=== PATIENT | male | born 1985 | race Caucasian/White ===

== ENCOUNTER 2016-09-01 16:08 | Emergency (ER) | payer OTHER ==
[~2016-09-01] VITALS: Ht 175.3 cm; Wt 73.9 kg
[2016-09-01] MEDS ORDERED: METHADONE H5 MG/5 M2 PO (17:10)
--- NOTE | 2016-09-01 18:25 | ED UPPER/LOWER EXTREMITY COMPL ---
History of Present Illness General Chief Complaint: General Adult Stated Complaint: PT HAS POSSIBLE INFECTION IN THE LEFT ARM Source: patient Exam Limitations: no limitations Vital Signs & Intake/Output Vital Signs & Intake/Output Vital Signs Date Time Temp Pulse Resp B/P B/P Pulse O2 O2 Flow FiO2 Mean Ox Delivery Rate 09/01 1946 98.7 76 18 117/65 97 Room Air 09/01 1807 98.5 78 18 117/71 98 Room Air 09/01 1612 97.5 78 16 115/60 97 Room Air Allergies Coded Allergies: Penicillins (PER PT CHILDHOOD REACTION 09/01/16) amoxicillin (PER PT CHILDHOOD REACTION 09/01/16) Reconcile Medications Doxycycline Hyclate 100 MG TABLET 1 TAB PO BID cellulitis Methadone HCl 5 MG/5 ML SOLUTION 55 MG PO DAILY MENTAL HEALTH (Reported) Triage Note: PT STATES HE HAD AN INFECTION MIDDLE FINGER LEFT HAND AND NOW HE HAS STREAKS OF RED GOING UP HIS ARM. Triage Nurses Notes Reviewed? yes Onset: Abrupt Duration: day(s):, constant, getting worse Timing: recent history Severity: moderate, severe Pain/Injury Location: Left: Arm, Forearm, Wrist, Hand. Method of Injury: unknown No Modifying Factors: none HPI: 31-year-old male with a history of IV drug use but has not used in a long time comes into emergency room with complaints of left middle finger swelling and pain at the tip and now redness going up his left arm. He denies any fever chills. He denies any current IV drug use. Painful. Nothing seems to make the symptoms better. Denies any other associated symptoms. (HARRIET LOPEZ) Past History Travel History Traveled to [place] past 21 day No Medical History Any Pertinent Medical History? none Surgical History Surgical History: N Psychosocial History What is your primary language Syriac Tobacco Use: Current Daily Use Daily Tobacco Use Amount/Type: => 5 Cigarettes daily ETOH Use: denies use Illicit Drug Use: METHADONE Family History Hx Contributory? No (HARRIET LOPEZ) Review of Systems Review of Systems Constitutional: Reports: no symptoms. EENTM: Reports: no symptoms. Respiratory: Reports: no symptoms. Cardiovascular: Reports: no symptoms. Gastrointestinal/Abdominal: Reports: no symptoms. Genitourinary: Reports: no symptoms. Musculoskeletal: Reports: see HPI. Skin: Reports: see HPI. Neurological/Psychological: Reports: no symptoms. Hematologic/Endocrine: Reports: no symptoms. Immunological: Reports: no symptoms. All Other Systems: Reviewed and Negative (HARRIET LOPEZ) Physical Exam Physical Exam General Appearance: well developed/nourished, mild distress Head: atraumatic Eyes: Bilateral: normal appearance. Ears, Nose, Throat: normal ENT inspection, hearing grossly normal Neck: normal inspection Cardiovascular/Respiratory: no respiratory distress Back: normal inspection Elbow Left: erythema and lymph streaking up left arm, multiple patchy red areas, warm to touch, Hand Left: some mild swelling to the left third phalanx, some mild erythema, no abscess appreciated, Neurologic/Tendon: normal sensation, normal motor functions, normal tendon functions, responds to pain, no evidence tendon injury, no pulse deficit Skin: intact, normal color, warm/dry Lymphatic: no anterior cervical lucy (HARRIET LOPEZ) Progress Differential Diagnosis: arterial insufficiency, cellulitis, CHF, compartment syndrome, contusion, dislocation, DVT, fracture, gout, septic arthritis, sprain, tendon injury, abscess, superficial thrombophlebitis, paronychia, Plan of Care: Orders Procedure Date/time Status BLOOD CULTURE 09/02 1735 Active C-REACTIVE PROTEIN 09/02 1735 Complete COMPREHENSIVE METABOLIC PANEL 09/02 1735 Complete CBC WITHOUT DIFFERENTIAL 09/02 1735 Complete Laboratory Tests 09/01/16 180: Anion Gap 13, Estimated GFR > 60, BUN/Creatinine Ratio 16.7, Glucose 102 H, Calcium 9.7, Total Bilirubin 0.8, AST 52, ALT 106 H, Alkaline Phosphatase 63, C -Reactive Prot, Quant 1.5 H, Total Protein 7.5, Albumin 4.5, Globulin 3.0, Albumin/Globulin Ratio 1.5, CBC w Diff NO MAN DIFF REQ, RBC 4.70, MCV 88.7, MCH 29.8, RDW 12.9, MPV 10.0, Gran % 67.4, Lymphocytes % 23.9, Monocytes % 7.4, Eosinophils % 0.9, Basophils % 0.4, Absolute Granulocytes 6.2, Absolute Lymphocytes 2.2, Absolute Monocytes 0.7 H, Absolute Eosinophils 0.1, Absolute Basophils 0, PUBS MCHC 33.6 Microbiology 09/01 1824 BLOOD: Blood Culture - RECD 09/01 1804 BLOOD: Blood Culture - RECD Departure Departure Disposition: HOME OR SELF CARE Condition: Stable Clinical Impression Primary Impression: Cellulitis of left arm Referrals: PATIENT HAS NO PRIMARY CARE DR (PCP/Family) Additional Instructions: Take doxycycline as prescribed. Return in 2 days for a wound check. Return sooner if any other concerns worsening symptoms. Please go over all results of today's visit with your primary care doctor. Contact your primary care doctor to let them know you were here in the emergency room. There may be nonspecific findings which may not be related to your visit today here in the emergency room but may require further evaluation and chronic monitoring by your primary care doctor. If you had a laceration today the chance of foreign body always remains. You should follow-up with your primary care doctor for recheck in 3-5 days for a wound check. If you had an x-ray done there is a chance that a fracture could have been missed on initial read and you should follow-up with your primary care doctor for repeat x-rays if symptoms persist. If your blood pressure was elevated here in the emergency room please have rechecked by her primary care doctor within the next 48 hours by your primary care doctor. If you were prescribed a narcotic here in the emergency room or any type of controlled substances you're not allowed to drive while taking this medication or operate any type of heavy machinery. Narcotics can make you feel lightheaded dizziness nausea and can cause constipation. You may need to pick up driver a stool softener. Thank you for choosing [facility] emergency room. Please return to the emergency room immediately if you have any other concerns worsening of symptoms. Departure Forms: Customer Survey General Discharge Information Prescriptions: Current Visit Scripts Doxycycline Hyclate 1 TAB PO BID #20 TAB Comments 09/01/2016 7:26:00 PM Patient clinically looks well. Nontoxic-appearing. Patient given dose of IV antibiotics. No white count. Afebrile. Temperature streaking with cellulitis. No paronychia on exam that needs incision and drainage. Patient will return in 2 days for wound check. Return if any other concerns. Patient was instructed to return if any spreading of redness or fever or flu like symptoms. (HARRIET LOPEZ) PA/STRAIGHT KNIFE C[employer]TER MACHINE Co-Sign Statement Statement: ED Attending supervision documentation- [] I saw and evaluated the patient. I have also reviewed all the pertinent lab results and diagnostic results. I agree with the findings and the plan of care as documented in the PA's/STRAIGHT KNIFE C[employer] MACHINE's documentation. [X] I have reviewed the ED Record and agree with the PA's/STRAIGHT KNIFE C[employer] M[employer]INE's documentation. [] Additions or exceptions (if any) to the PAs/STRAIGHT KNIFE C[employer]TER MACHINE's note and plan are summarized below: [] (GURJIT FU,DERRELL Dominguez)
[2016-09-01 18:45] LABS: ABSOLUTE BASOPHIL COUNT 0 /CUMM (0.0-0.2); ABSOLUTE EOSINOPHIL COUNT 0.1 /CUMM (0.0-0.7); ABSOLUTE GRANULOCYTE CT 6.2 /CUMM (1.4-6.5); ABSOLUTE LYMPH COUNT 2.2 /CUMM (1.2-3.4); ABSOLUTE MONOCYTE COUNT 0.7 /CUMM (0.10-0.60); BASOPHIL % 0.4 % (0.0-2.0); EOSINOPHIL % 0.9 % (0-5); GRANULOCYTE % 67.4 % (42.2-75.2); HEMATOCRIT 41.7 % (42-52); MEAN CORPUSCULAR HGB 29.8 PG (27.0-31.0); MEAN CORPUSCULAR HGB CONC 33.6 G/DL (33.0-37.0); MEAN CORPUSCULAR VOLUME 88.7 FL (80.0-94.0); PLATELET COUNT 169 /CUMM (130-400); RBC DISTRIBUTION WIDTH 12.9 % (11.5-14.5); WHITE BLOOD CELL COUNT 9.2 /CUMM (4.8-10.8)
[2016-09-01] MEDS ORDERED: DOXYCYCLINE HY100 M4 PO (19:25)
[2016-09-01 19:47] VITALS: BP 117/65
== END 2016-09-01 19:48 ==
LOC: ERH 16:08
PROVIDERS: Physician Assistant Medical
DX: L03.114 Cellulitis of left upper limb (principal)
CPT/HCPCS: 87040; 96374; J3370